=== PATIENT | female | born 1975 | race Caucasian/White ===

== ENCOUNTER 2019-06-16 11:33 | Outpatient (CLI) | payer OTHER ==
[~2019-06-16] VITALS: Ht 167.7 cm; Wt 75.5 kg
[2019-06-16] MEDS ORDERED: MASON NATURAL2000 IU PO (12:12)
[2019-06-16 12:41] VITALS: BP 112/73; PULSE 78; TEMP 98
[2019-06-16] MEDS ORDERED: INDERAL 20MG20 MG PO (12:46)
[2019-06-16 12:52] LABS: HEMATOCRIT 41.2 % (37.0-47.0); HEMOGLOBIN 13.7 g/dl (12.5-16.0); MEAN CELL VOLUME 88 fl (80.0-100.0); MEAN CORPUSCULAR HEMOGLOBIN 29 pg (27.0-31.0); MEAN CORPUSCULAR HGB CONC 33 g/dl (33.0-37.0); MEAN PLATELET VOLUME 10.3 fl (7.4-10.4); PLATELET COUNT 225 K/mm3 (130-400); REDCELL DISTRIBUTION WIDTH-CV 12.7 % (11.5-14.5)
[2019-06-16 13:04] LABS: PROTHROMBIN TIME 11.8 SECONDS (9.7-12.8)
[2019-06-16 13:50] VITALS: BP 115/72; PULSE 69
--- NOTE | 2019-06-16 14:05 | NUR ---
Pt discharged per ambulation with .
== END 2019-06-16 15:05 | disposition home or self-care (01) ==
LOC: COL.CAR 11:33
PROVIDERS: Internal Medicine Cardiovascular Disease
DX: R00.2 Palpitations (principal); R42 Dizziness and giddiness; Z88.2 Allergy status to sulfonamides